=== PATIENT | female | born 1955 | race Two or more races ===

== ENCOUNTER 2017-08-27 11:23 | Outpatient (CLI) | payer OTHER ==
[~2017-08-27 11:23] MED LIST: COZAAR50 MG PO; DICLOFENAC POTA50 MG PO; LANTUS; METFORMIN HCL850 MG PO; METHOCARBAMOL500 MG PO; PAROXETINE CR12.5 MG PO; TIZANIDINE HCL2 MG PO; XANAX1 MG PO; ZOCOR20 MG PO
== END 2017-08-27 11:31 | disposition home or self-care (01) ==
LOC: LAB 11:23
DX: E11.9 Type 2 diabetes mellitus without complications (principal)

== ENCOUNTER 2017-08-31 05:30 | Day surgery (SDC) | payer OTHER | END 2017-08-31 13:40 | disposition home or self-care (01) | LOC: CIR.AMB | DX: M65.811 Other synovitis and tenosynovitis, right shoulder (principal); M19.011 Primary osteoarthritis, right shoulder; M75.111 Incomplete rotator cuff tear or rupture of right shoulder, not specified as traumatic ==

== ENCOUNTER 2018-04-10 20:28 | Emergency (ER) | payer OTHER ==
[~2018-04-10] VITALS: Ht 157.5 cm; Wt 65.8 kg
[~2018-04-10 20:28] MED LIST changes: +NABUMETONE750 MG PO
== END 2018-04-10 21:24 | disposition home or self-care (01) ==
LOC: ER 20:28
DX: S90.572A Other superficial bite of ankle, left ankle, initial encounter (principal); W54.0XXA Bitten by dog, initial encounter; Y93.89 Activity, other specified; Y92.89 Other specified places as the place of occurrence of the external cause; Y99.8 Other external cause status

== ENCOUNTER 2018-12-22 12:29 | Emergency (ER) | payer OTHER | END 2018-12-22 16:40 | disposition home or self-care (01) | LOC: ER 12:29 | DX: N39.0 Urinary tract infection, site not specified (principal) ==

== ENCOUNTER 2019-03-30 10:03 | Outpatient (CLI) | payer OTHER | END 2019-03-30 10:13 | disposition home or self-care (01) | LOC: RAD 10:03 | DX: M25.561 Pain in right knee (principal) ==

== ENCOUNTER 2019-04-04 09:58 | Outpatient (CLI) | payer OTHER | END 2019-04-04 10:00 | disposition home or self-care (01) | LOC: RAD 09:58 | DX: M17.11 Unilateral primary osteoarthritis, right knee (principal) ==

== ENCOUNTER 2019-04-13 11:10 | Outpatient (CLI) | payer OTHER | END 2019-04-13 11:24 | disposition home or self-care (01) | LOC: RAD 11:10 | DX: M17.11 Unilateral primary osteoarthritis, right knee (principal) ==

== ENCOUNTER → 2019-04-25 08:41 | Outpatient (CLI) | payer OTHER ==
[~2019-04-25 08:41] MED LIST changes: +MYSOLINE50 MG PO; +VITA D PO; +[UNRECOGNIZED DRUG - OTHER] PO
== END | disposition home or self-care (01) ==
LOC: LAB 08:41
DX: D64.89 Other specified anemias (principal); E88.89 Other specified metabolic disorders; D68.8 Other specified coagulation defects; N39.0 Urinary tract infection, site not specified; A49.02 Methicillin resistant Staphylococcus aureus infection, unspecified site

== ENCOUNTER 2019-04-27 13:54 | Outpatient (CLI) | payer OTHER ==
[~2019-04-27 13:54] MED LIST changes: -MYSOLINE50 MG PO; -VITA D PO; -[UNRECOGNIZED DRUG - OTHER] PO
[2019-04-28] MEDS ORDERED: MYSOLINE50 MG PO ×2 (12:58→13:00)
[2019-04-28] MEDS ORDERED: [UNRECOGNIZED DRUG - OTHER] PO (12:58)
[2019-04-28] MEDS ORDERED: LANTUS (13:00)
[2019-04-28] MEDS ORDERED: VITA D PO (13:01)
== END 2019-04-27 14:06 | disposition home or self-care (01) ==
LOC: RAD 13:54
DX: M79.651 Pain in right thigh (principal); M79.604 Pain in right leg

== ENCOUNTER 2019-04-28 11:18 | Inpatient (IN) | payer OTHER ==
[~2019-04-28] VITALS: Ht 157.5 cm; Wt 65.8 kg
[2019-04-28] MEDS ORDERED: [UNRECOGNIZED DRUG - OTHER] PO (12:58)
[2019-04-28] MEDS ORDERED: MYSOLINE50 MG PO ×2 (12:58→13:00)
[2019-04-28] MEDS ORDERED: LANTUS (13:00)
[2019-04-28] MEDS ORDERED: VITA D PO (13:01)
[2019-05-09] MEDS ORDERED: SIMVASTATIN80 MG PO (09:13)
[2019-05-09] MEDS ORDERED: PAROXETINE HCL40 MG PO (09:13)
[2019-05-09] MEDS ORDERED: ALPRAZOLAM0.5 MG PO (09:14)
[2019-05-09] MEDS ORDERED: LOSARTAN POTAS100 MG PO (09:14)
[2019-05-09] MEDS ORDERED: VITAMIN D2000 UNI1 PO (09:20)
== END 2019-05-12 13:16 | disposition home or self-care (01) | DRG 470 ==
LOC: O/R 05-09 06:55 → SURH 05-09 06:55
PROVIDERS: ADMIT Orthopaedic Surgery
PROC: 0SRC0J9 Replacement of Right Knee Joint with Synthetic Substitute, Cemented, Open Approach (ICD-10-PCS; principal; 2019-05-09 07:00)
DX: M17.11 Unilateral primary osteoarthritis, right knee (principal); D62 Acute posthemorrhagic anemia; I10 Essential (primary) hypertension; E78.49 Other hyperlipidemia; E11.9 Type 2 diabetes mellitus without complications; Z79.4 Long term (current) use of insulin

== ENCOUNTER 2019-10-04 11:41 | Outpatient (CLI) | payer OTHER ==
[~2019-10-04 11:41] MED LIST changes: +ALPRAZOLAM0.5 MG PO; +LOSARTAN POTAS100 MG PO; +MYSOLINE50 MG PO; +PAROXETINE HCL40 MG PO; +SIMVASTATIN80 MG PO; +VITA D PO; +VITAMIN D2000 UNI1 PO; +[UNRECOGNIZED DRUG - OTHER] PO
== END 2019-10-04 11:48 | disposition home or self-care (01) ==
LOC: RAD 11:41
DX: M19.011 Primary osteoarthritis, right shoulder (principal)

== ENCOUNTER 2019-10-11 10:37 | Outpatient (CLI) | payer OTHER | END 2019-10-11 10:46 | disposition home or self-care (01) | LOC: RAD 10:37 | DX: M19.011 Primary osteoarthritis, right shoulder (principal) ==

== ENCOUNTER → 2023-10-23 | Emergency (ER) | payer OTHER ==
[~2023-10-23] VITALS: Ht 154.9 cm; Wt 57.6 kg
[~2023-10-23] MED LIST changes: +EZALLOR SPRINKLE5 MG PO; +FARXIGA5 MG PO
== END | disposition left against medical advice (07) ==
LOC: ER 22:10
DX: Z53.21 Procedure and treatment not carried out due to patient leaving prior to being seen by health care provider (principal)

== ENCOUNTER 2024-03-10 12:07 | Outpatient (CLI) | payer OTHER | END 2024-03-10 12:15 | disposition home or self-care (01) | LOC: SONOGRAMA 12:07 | PROVIDERS: ATTEND Orthopaedic Surgery | DX: M25.511 Pain in right shoulder (principal) ==

== ENCOUNTER 2024-03-16 13:51 | Outpatient (CLI) | payer OTHER | END 2024-03-16 14:05 | disposition home or self-care (01) | LOC: MRI 13:51 | PROVIDERS: ATTEND Family Medicine | DX: R10.2 Pelvic and perineal pain (principal); D39.12 Neoplasm of uncertain behavior of left ovary | CPT/HCPCS: 72195 ==

== ENCOUNTER 2024-06-29 10:10 | Outpatient (CLI) | payer OTHER | END 2024-06-29 10:18 | disposition home or self-care (01) | LOC: LAB 10:10 | PROVIDERS: ATTEND Orthopaedic Surgery | DX: E55.9 Vitamin D deficiency, unspecified (principal); M85.9 Disorder of bone density and structure, unspecified; E56.1 Deficiency of vitamin K ==

== ENCOUNTER 2024-07-07 13:37 | Outpatient (CLI) | payer OTHER | END 2024-07-07 13:50 | disposition home or self-care (01) | LOC: RAD 13:37 | PROVIDERS: ATTEND Orthopaedic Surgery | DX: M79.642 Pain in left hand (principal); M79.645 Pain in left finger(s); M25.511 Pain in right shoulder; M19.011 Primary osteoarthritis, right shoulder ==

== ENCOUNTER 2024-07-11 10:47 | Outpatient (CLI) | payer OTHER | END 2024-07-11 10:52 | disposition home or self-care (01) | LOC: MAMO-SONO 10:47 | PROVIDERS: ATTEND Family Medicine | DX: N60.11 Diffuse cystic mastopathy of right breast (principal); N60.12 Diffuse cystic mastopathy of left breast; Z12.31 Encounter for screening mammogram for malignant neoplasm of breast ==

== ENCOUNTER 2024-08-04 14:35 | Outpatient (CLI) | payer OTHER ==
[~2024-08-04 14:35] MED LIST changes: +LANTUS SOL100 UNIT/1
== END 2024-08-04 14:39 | disposition home or self-care (01) ==
LOC: RAD 14:35
PROVIDERS: ATTEND Orthopaedic Surgery
DX: M25.532 Pain in left wrist (principal)

== ENCOUNTER 2024-08-09 07:25 | Day surgery (SDC) | payer OTHER ==
[2024-08-04 12:22] LABS: HEMATOCRIT 38.8 % (36.0-45.00); HEMOGLOBIN 12.5 g/dL (12.0-15.00); MEAN CELL VOLUME 79.7 fL (80.00-100.00); MEAN CORPUSCULAR HEMOGLOBIN 25.8 pg (27.00-32.0); MEAN CORPUSCULAR HGB CONC 32.3 g/dl (32.0-36.0); PLATELET COUNT 500 K/uL (150-450); RED BLOOD COUNT 4.87 M/uL (4.00-6.00)
[2024-08-04 12:27] LABS: URINE APPEARANCE Clear; URINE BILIRRUBIN Negative (NEGATIVE); URINE BLOOD Negative; URINE COLOR Yellow; URINE KETONE Trace (NEGATIVE); URINE LEUKOCYTE Negative; URINE NITRATE Negative; URINE PROTEIN 30 (NEGATIVE); URINE UROBILINOGEN 0.2 E.U./dl
[2024-08-04 12:32] LABS: URINE BACTERIA 26.9 uL (0.0-1933); URINE WBC 3.7 uL (0.0-23.2)
[2024-08-04 12:38] LABS: URINE CAST 0.14 uL (0.0-1.40); URINE GLUCOSE >=1000 MG/DL (NEGATIVE); URINE RBC 1.1 uL (0.0-20.8)
[2024-08-04 12:45] LABS: RED CELL DISTRIBUTION WIDTH 17.2 % (11.5-14.5)
[2024-08-04 12:46] LABS: INR 0.98; PARTIAL THROMBOPLASTIN TIME 30.2 SECONDS (22.0-34.0); PROTHROMBIN TIME 10.7 SECONDS (9.0-11.5)
[2024-08-04 13:04] LABS: ALBUMIN 4.1 gm/dL (3.4-5.0); BILIRUBIN TOTAL 0.29 mg/dL (0.3-1.2); CALCIUM 10.3 mg/dL (8.5-10.1); CREATININE SERUM 0.74 mg/dL (0.55-1.02); GFR 77.81; GLOBULINA 3.6 G/DL (2.4-3.5); POTASSIUM 4.24 mEq/L (3.5-5.1); TOTAL PROTEIN 7.7 gm/dL (6.4-8.2)
[2024-08-04 13:09] VITALS: BP 135/75
[~2024-08-09] VITALS: Ht 154.9 cm; Wt 55.3 kg
[2024-08-09] MEDS ORDERED: BUPIVACAINE HCL 30 ML VIAL IJ ONE (10:30)
[2024-08-09] MEDS ORDERED: CEFAZOLIN SODIUM 1,000 MG VIAL IV SCH (10:30)
[2024-08-09] MEDS ORDERED: SUGAMMADEX SODIUM 200 MG/2 ML VIAL IV ONE (11:45)
== END 2024-08-09 14:15 | disposition home or self-care (01) ==
LOC: CIR.AMB 07:25
PROVIDERS: ATTEND Orthopaedic Surgery
DX: T84.84XD Pain due to internal orthopedic prosthetic devices, implants and grafts, subsequent encounter (principal); M65.4 Radial styloid tenosynovitis [de Quervain]

== ENCOUNTER → 2025-01-04 | Outpatient (CLI) | payer OTHER | END | disposition home or self-care (01) | LOC: RAD 12:05 | PROVIDERS: ATTEND Orthopaedic Surgery | DX: M18.12 Unilateral primary osteoarthritis of first carpometacarpal joint, left hand (principal) ==

== ENCOUNTER 2025-01-09 09:07 | Outpatient (CLI) | payer OTHER ==
[2025-01-09 10:00] VITALS: BP 118/77
[2025-01-09 10:10] LABS: BASO % 1.7 % (0.1-1.2); EOS # 0.25 (0.04-0.54); EOS % 2.9 % (0.7-7.0); HEMATOCRIT 37.6 % (34.1-44.9); HEMOGLOBIN 11.7 g/dL (11.2-15.7); LYMPH # 2.95 (1.18-3.74); LYMPH % 33.9 % (19.3-53.1); MEAN CORPUSCULAR HEMOGLOBIN 25.3 pg (25.6-32.2); MONO # 0.62 (0.24-0.82); MONO % 7.1 % (4.7-12.5); NEUT # 4.69 (1.56-6.13); NEUT % 54.1 % (34.0-71.1); PLATELET COUNT 401 K/uL (163-369); RED BLOOD COUNT 4.62 M/uL (3.93-5.22); RED CELL DISTRIBUTION WIDTH 15.1 % (11.6-14.4)
[2025-01-09 10:47] LABS: ALBUMIN 3.9 gm/dL (3.4-5.0); BILIRUBIN TOTAL 0.35 mg/dL (0.3-1.2); CREATININE SERUM 0.72 mg/dL (0.55-1.02); GFR 80.31; GLOBULINA 3.4 G/DL (2.4-3.5); MAGNESIUM 1.7 mg/dL (1.8-2.4); POTASSIUM 4.63 mEq/L (3.5-5.1); TOTAL PROTEIN 7.3 gm/dL (6.4-8.2)
[2025-01-09 10:49] LABS: INR 1.02; PARTIAL THROMBOPLASTIN TIME 29.1 SECONDS (22.0-34.0); PROTHROMBIN TIME 11.1 SECONDS (9.0-11.5)
[2025-01-09 10:54] LABS: URINE APPEARANCE Cloudy; URINE BILIRRUBIN Negative (NEGATIVE); URINE BLOOD Negative; URINE COLOR Yellow; URINE KETONE Trace (NEGATIVE); URINE LEUKOCYTE Negative; URINE NITRATE Negative; URINE PROTEIN Trace (NEGATIVE); URINE UROBILINOGEN 0.2 E.U./dl
[2025-01-09 10:59] LABS: URINE BACTERIA 20.8 uL (0.0-1933); URINE EPITHELIAL CELLS 16.6 uL (0.0-38.8); URINE RBC 70.2 uL (0.0-20.8); URINE WBC 4.9 uL (0.0-23.2)
[2025-01-09 11:13] LABS: URINE CAST 0.14 uL (0.0-1.40); URINE GLUCOSE >=1000 MG/DL (NEGATIVE)
[2025-01-09 11:32] LABS: COL EPI 165 SECONDS (82-175)
== END 2025-01-10 08:18 | disposition home or self-care (01) ==
LOC: RAD 09:07
PROVIDERS: ATTEND Orthopaedic Surgery
DX: D64.9 Anemia, unspecified (principal); E88.89 Other specified metabolic disorders; D68.8 Other specified coagulation defects; N39.0 Urinary tract infection, site not specified; E11.9 Type 2 diabetes mellitus without complications; Z20.822 Contact with and (suspected) exposure to COVID-19; I10 Essential (primary) hypertension; Z76.89 Persons encountering health services in other specified circumstances; E55.9 Vitamin D deficiency, unspecified; M85.9 Disorder of bone density and structure, unspecified; E56.1 Deficiency of vitamin K

== ENCOUNTER → 2025-01-20 10:34 | Outpatient (CLI) | payer OTHER | END | disposition home or self-care (01) | LOC: LAB 10:34 | PROVIDERS: ATTEND Orthopaedic Surgery | DX: E11.9 Type 2 diabetes mellitus without complications (principal) ==

== ENCOUNTER 2025-02-21 10:40 | Outpatient (CLI) | payer OTHER | END 2025-02-21 10:44 | disposition home or self-care (01) | LOC: LAB 10:40 | PROVIDERS: ATTEND Orthopaedic Surgery | DX: E11.9 Type 2 diabetes mellitus without complications (principal) ==

== ENCOUNTER 2025-03-06 10:33 | Outpatient (CLI) | payer OTHER ==
[2025-03-06 11:52] LABS: BASO % 1.9 % (0.1-1.2); EOS # 0.23 (0.04-0.54); EOS % 2.7 % (0.7-7.0); LYMPH # 2.44 (1.18-3.74); LYMPH % 28.5 % (19.3-53.1); MEAN PLATELET VOLUME 10.10 fl (9.4-12.4); MONO # 0.66 (0.24-0.82); MONO % 7.7 % (4.7-12.5); NEUT # 5.04 (1.56-6.13); NEUT % 58.8 % (34.0-71.1); RED CELL DISTRIBUTION WIDTH 14.8 % (11.6-14.4)
[2025-03-06 12:15] LABS: INR 1.03
[2025-03-06 12:30] LABS: ALT/SGPT 21.0 U/L (12-78); AST/SGOT 13.0 U/L (15-37); BILIRUBIN TOTAL 0.3 mg/dL (0.3-1.2); BUN CREA RATIO 27.0 (7.0-25.0); COL EPI 154 SECONDS (82-175); CREATININE SERUM 0.74 mg/dL (0.55-1.02); GFR 77.81; GLOBULINA 3.3 G/DL (2.4-3.5); GLUCOSE FASTING 160.0 mg/dL (65-100); OSMOLALITY SERUM 287.0 MOSM/KG (275-295)
[2025-03-06 12:30] LABS: URINE APPEARANCE Clear; URINE BILIRRUBIN Negative (NEGATIVE); URINE BLOOD Negative; URINE COLOR Yellow; URINE KETONE Negative (NEGATIVE); URINE LEUKOCYTE Negative; URINE NITRATE Negative; URINE PROTEIN Negative (NEGATIVE); URINE UROBILINOGEN 0.2 E.U./dl
[2025-03-06 12:34] LABS: URINE BACTERIA 8.3 uL (0.0-1933); URINE EPITHELIAL CELLS 3.5 uL (0.0-38.8); URINE WBC 4.1 uL (0.0-23.2)
[2025-03-06 12:41] LABS: URINE CAST 1.17 uL (0.0-1.40); URINE GLUCOSE >=1000 MG/DL (NEGATIVE); URINE RBC 1.3 uL (0.0-20.8)
[2025-03-16] MEDS ORDERED: TRIJARDY XR 101 EACH (14:49)
== END 2025-03-06 10:41 | disposition home or self-care (01) ==
LOC: RAD 10:33
PROVIDERS: ATTEND Orthopaedic Surgery
DX: D64.9 Anemia, unspecified (principal); Z76.89 Persons encountering health services in other specified circumstances; E88.9 Metabolic disorder, unspecified; D68.8 Other specified coagulation defects; N39.0 Urinary tract infection, site not specified; Z22.322 Carrier or suspected carrier of Methicillin resistant Staphylococcus aureus; E11.9 Type 2 diabetes mellitus without complications; I10 Essential (primary) hypertension

== ENCOUNTER 2025-03-20 05:56 | Day surgery (SDC) | payer OTHER ==
[~2025-03-20 05:56] MED LIST changes: +TRIJARDY XR 101 EACH
[2025-03-20] MEDS ORDERED: CIPROFLOXACIN IN 5 % DEXTROSE 400 MG/200 ML PIGGYBAG IV ONE (08:45)
[2025-03-20] MEDS ORDERED: ISOPROPYL ALCOHOL 30 ML OUNCE TOP ONE (08:45)
[2025-03-20] MEDS ORDERED: BUPIVACAINE HCL 30 ML VIAL IJ ONE (08:45)
[2025-03-20] MEDS ORDERED: MORPHINE SULFATE 4 MG/ML VIAL IV ONE ×2 (11:05→11:35)
== END 2025-03-20 12:55 | disposition home or self-care (01) ==
LOC: CIR.AMB 05:56
PROVIDERS: ATTEND Orthopaedic Surgery
DX: M18.12 Unilateral primary osteoarthritis of first carpometacarpal joint, left hand (principal); M65.842 Other synovitis and tenosynovitis, left hand

== ENCOUNTER → 2025-04-14 11:30 | Outpatient (CLI) | payer OTHER | END | disposition home or self-care (01) | LOC: LAB 11:30 | PROVIDERS: ATTEND Orthopaedic Surgery | DX: E21.3 Hyperparathyroidism, unspecified (principal); M81.8 Other osteoporosis without current pathological fracture ==

== ENCOUNTER 2025-04-14 11:41 | Outpatient (CLI) | payer OTHER | END 2025-04-14 11:43 | disposition home or self-care (01) | LOC: RAD 11:41 | PROVIDERS: ATTEND Orthopaedic Surgery | DX: M18.12 Unilateral primary osteoarthritis of first carpometacarpal joint, left hand (principal) ==

== ENCOUNTER 2025-07-05 13:59 | Outpatient (CLI) | payer OTHER | END 2025-07-05 14:03 | disposition home or self-care (01) | LOC: RAD 13:59 | PROVIDERS: ATTEND Physical Medicine & Rehabilitation | DX: M25.532 Pain in left wrist (principal) ==